=== PATIENT | male | born 1970 | race Caucasian/White ===

== ENCOUNTER 2017-02-09 14:40 | Emergency (ER) | payer OTHER, BC ==
[2017-02-09 14:52] VITALS: BP 140/95; PULSE 64; TEMP 97.8; BMI 25.1
--- NOTE | 2017-02-09 14:52 | PDOC ---
Rapid Medical Evaluation Chief Complaint: Injury Time Seen by Provider: 02/09/17 14:45 Medical Evaluation: Allergies Allergy/AdvReac Type Severity Reaction Status Date / Time No Known Allergies Allergy Verified 02/09/17 14:45 Vital Signs Temp Pulse Resp BP Pulse Ox 97.8 F 64 18 140/95 98 02/09/17 14:42 02/09/17 14:42 02/09/17 14:42 02/09/17 14:42 02/09/17 14:42 02/09/17 14:46 o I have performed a brief in-person evaluation of this patient. o The patient presents with a chief complaint of: Twisting right elbow o Pertinent physical exam findings: Right lateral elbow pain o I have ordered the following: Xray right elbow o The patient will proceed to the ED for further evaluation.
--- NOTE | 2017-02-09 15:33 | PDOC ---
History of Present Illness - General Chief Complaint: Injury Stated Complaint: JOB INJURY Time Seen by Provider: 02/09/17 14:45 History Source: Patient - History of Present Illness Occurred: reports: just prior to arrival Upper Extremity Pain Location: right: elbow Method of Injury: reports: twisted Past History - Past Medical History Allergies/Adverse Reactions: Allergies Allergy/AdvReac Type Severity Reaction Status Date / Time No Known Allergies Allergy Verified 02/09/17 14:45 Home Medications: Ambulatory Orders NK [No Known Home Medication] 10/10/15 Suicide Attempt (Hx): No Other medical history: PATIENT DENIES MEDICAL HISTORY - Psycho/Social/Smoking Cessation Hx Anxiety: No Suicidal Ideation: No Smoking Status: No Smoking History: Never smoked Number of Cigarettes Smoked Daily: 0 Hx Alcohol Use: No Drug/Substance Use Hx: No Substance Use Type: None Review of Systems - Review of Systems Musculoskeletal: Yes: Joint Pain. No: Joint Swelling Neurological: No: Numbness, Tingling *Physical Exam - Vital Signs Last Vital Signs Temp Pulse Resp BP Pulse Ox 97.8 F 64 18 140/95 98 02/09/17 14:42 02/09/17 14:42 02/09/17 14:42 02/09/17 14:42 02/09/17 14:42 - Physical Exam General Appearance: Yes: Appropriately Dressed. No: Apparent Distress HEENT: positive: Normal Voice Neck: positive: Supple Respiratory/Chest: negative: Respiratory Distress Extremity: positive: Normal Inspection, Normal Range of Motion. 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 Denies fall. Patient well- appearing and stable with no swelling, deformity or significant tenderness to right elbow on exam. Most likely sprain. X-ray ordered from triage and neg for fx. Patient discharge patient declines pain meds in ED. Discharged with [id number] pain meds as needed 02/09/17 15:34 *DC/Admit/Observation/Transfer Diagnosis at time of Disposition: Elbow sprain Qualifiers: Encounter type: initial encounter Laterality: right Qualified Code(s): S53.401A - Unspecified sprain of right elbow, initial encounter - Discharge Dispostion Disposition: HOME Condition at time of disposition: Good - Patient Instructions Printed Discharge Instructions: DI for Elbow Sprain Additional Instructions: Take motrin as needed for pain
== END 2017-02-09 15:59 | disposition home or self-care (01) ==
LOC: JERFT 14:40
DX: S53.401A Unspecified sprain of right elbow, initial encounter (principal); Y35.891A Legal intervention involving other specified means, law enforcement official injured, initial encounter; Y93.89 Activity, other specified; Y92.9 Unspecified place or not applicable
CPT/HCPCS: 73070-TC-RT; 99281-25

== ENCOUNTER 2017-06-29 09:40 | Emergency (ER) | payer OTHER, BC ==
[2017-06-29 09:51] VITALS: BP 142/94; PULSE 66; TEMP 98.5; BMI 25.1
[2017-06-29] MEDS ORDERED: IBUPROFEN 600 MG TABLET (FP) PO ONE ×2 (10:08→10:09)
--- NOTE | 2017-06-29 10:10 | PDOC ---
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 Patient reports the pain currently as a 6 out of 10 with no radiation of pain down the legs no saddle anesthesia or weakness of legs or foot. Patient is ambulating without difficulty. Patient denies any other injuries. Occurred: reports: just prior to arrival Severity: reports: moderate Pain Location: reports: back (mid lower back ) Method of Injury: Yes: other (struggling with suspect at work ) Modifying Factors: improves with: None Loss of Consciousness: no loss of consciousness Associated Symptoms (Fall): denies symptoms Past History - Past Medical History Allergies/Adverse Reactions: Allergies Allergy/AdvReac Type Severity Reaction Status Date / Time No Known Allergies Allergy Verified 06/29/17 09:47 Home Medications: Ambulatory Orders NK [No Known Home Medication] 10/10/15 COPD: No - Suicide/Smoking/Psychosocial Hx Smoking Status: No Smoking History: Never smoked Number of Cigarettes Smoked Daily: 0 Hx Alcohol Use: No Drug/Substance Use Hx: No Substance Use Type: None Trauma Specific PMHX - Complaint Specific PMHX Arthritis: No Back Injury: No Neck Injury: No Hx Sacro Iliac Joint Dysfunction: No Review of Systems - Review of Systems Able to Perform ROS?: Yes Constitutional: No: Symptoms Reported HEENTM: No: Symptoms Reported Respiratory: No: Symptoms reported Cardiac (ROS): No: Symptoms Reported ABD/GI: No: Symptoms Reported : No: Symptoms Reported Musculoskeletal: Yes: Back Pain (LOWER MID ) Integumentary: No: Symptoms Reported Neurological: No: Symptoms reported *Physical Exam - Vital Signs Last Vital Signs Temp Pulse Resp BP Pulse Ox 98.5 F 66 18 142/94 97 06/29/17 09:48 06/29/17 09:48 06/29/17 09:48 06/29/17 09:48 06/29/17 09:48 - Physical Exam General Appearance: Yes: Appropriately Dressed Neck: negative: Tender, Rigidity, Tender lateral, Tender midline Respiratory/Chest: positive: Lungs Clear, Normal Breath Sounds. negative: Chest Tender, Respiratory Distress Cardiovascular: positive: Regular Rhythm, Regular Rate, S1, S2 Musculoskeletal: positive: Normal Inspection, Decreased Range of Motion ( MINIMAL WITH ANTERIOR FLEXION AT WAIST ), Other (TENDERNESS OF PARASPINAL LUMBAR MUSCLE TENDERNESS B/L ). negative: CVA Tenderness, CVA Tenderness (R), CVA Tenderness (L), Muscle Spasm, Vertebral Tenderness Extremity: positive: Normal Capillary Refill, Normal Inspection, Normal Range of Motion Integumentary: positive: Normal Color Neurologic: positive: Alert, Normal Response, Motor Strength 5/5 (LEGS ), Respond to painful stimul (LEGS B/L ), Responsive, Other (NEGATIVE SLR B/L ). 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 Patient reports the pain currently as a 6 out of 10 with no radiation of pain down the legs no saddle anesthesia or weakness of legs or foot. Patient is ambulating without difficulty. Patient denies any other injuries. Lower back pain PLAN: IBUPROFEN 600 MG PO NOW FOLLOW UP WITH ORTHO IF PAIN PERSISTS *DC/Admit/Observation/Transfer Diagnosis at time of Disposition: Low back strain Qualifiers: Encounter type: initial encounter Qualified Code(s): S39.012A - Strain of muscle, fascia and tendon of lower back, initial encounter - Discharge Dispostion Disposition: HOME Condition at time of disposition: Stable - Referrals Referrals: Gera Elliott [Primary Care Provider] - Jaylan Sanabria MD [Staff Physician] - - Patient Instructions Additional Instructions: Follow-up with orthopedist if pain continues within the next couple of days Take ibuprofen, or Aleve, or Advil as needed as directed by air operations manager for pain Emergency room if any weakness of legs or any pain radiating down the legs or numbness of legs or private area or any loss of control of bowel or bladder You may apply ice to your lower back every hour for 15 minutes while awake today and tomorrow he may apply heating pad or warm pack Patient voiced understanding of discharge instructions and all questions were answered
== END 2017-06-29 10:14 | disposition home or self-care (01) ==
LOC: JERFT 09:40
DX: S39.012A Strain of muscle, fascia and tendon of lower back, initial encounter (principal); Y35.811A Legal intervention involving manhandling, law enforcement official injured, initial encounter; Y93.89 Activity, other specified; Y92.89 Other specified places as the place of occurrence of the external cause; Y99.0 Civilian activity done for income or pay
CPT/HCPCS: 99281-25

== ENCOUNTER 2017-12-21 12:36 | Emergency (ER) | payer BC, OTHER ==
[2017-12-21 12:44] VITALS: BP 137/88; PULSE 79; TEMP 97; BMI 24.3
[2017-12-21] MEDS ORDERED: BACITRACIN 15 GM TUBE TOPICAL OINTMENT ONE (13:19)
--- NOTE | 2017-12-21 13:44 | PDOC ---
History of Present Illness - General Chief Complaint: Injury Stated Complaint: LT KNEE INJURY Time Seen by Provider: 12/21/17 12:48 History Source: Patient - History of Present Illness Occurred: reports: other Severity: Yes: mild Lower Extremity Pain Location: left: knee Method of Injury: Yes: fell Past History - Past Medical History Allergies/Adverse Reactions: Allergies Allergy/AdvReac Type Severity Reaction Status Date / Time No Known Allergies Allergy Verified 12/21/17 12:39 Home Medications: Ambulatory Orders NK [No Known Home Medication] 10/10/15 COPD: No HTN: Yes (borderline HTN) - Immunization History Immunization Up to Date: Yes - Suicide/Smoking/Psychosocial Hx Smoking Status: No Smoking History: Never smoked Have you smoked in the past 12 months: No Number of Cigarettes Smoked Daily: 0 Information on smoking cessation initiated: No Hx Alcohol Use: No Drug/Substance Use Hx: No Substance Use Type: None Review of Systems - Review of Systems Musculoskeletal: Yes: Joint Pain. No: Joint Swelling *Physical Exam - Vital Signs Last Vital Signs Temp Pulse Resp BP Pulse Ox 97 F L 79 17 137/88 98 12/21/17 12:41 12/21/17 12:41 12/21/17 12:41 12/21/17 12:41 12/21/17 12:41 - Physical Exam General Appearance: Yes: Appropriately Dressed. No: Apparent Distress HEENT: positive: Normal Voice Neck: positive: Supple Respiratory/Chest: negative: Respiratory Distress Extremity: positive: Other (extensive abrasiosn to anterior R leg, no swellign to L knee joint, FROMI) Integumentary: positive: Dry, Warm Neurologic: positive: Fully Oriented, Alert, Normal Mood/Affect Medical Decision Making - Medical Decision Making 12/21/17 13:20 47 yo M, no sig hx, [employer], p/w L knee pain s/p injury during soccer ball last night. States he slid into another player and got LLE caught under player. States pain located to posterior L knee and worse w/ extension. Not taking anything for pain. Able to bear weight. Pt well manuel and stable w/ abrasions to anterior R leg, no joint swelling/deformity/laxity. M/l sprain. Dc w/ supportive tx and ortho referral as needed *DC/Admit/Observation/Transfer Diagnosis at time of Disposition: Knee injury Qualifiers: Encounter type: initial encounter Laterality: left Qualified Code(s): S89.92XA - Unspecified injury of left lower leg, initial encounter - Discharge Dispostion Disposition: HOME Condition at time of disposition: Good - Referrals Referrals: Gera Elliott [Primary Care Provider] - - Patient Instructions Printed Discharge Instructions: DI for Knee Sprain Additional Instructions: You likely sprained your knee but will need to follow-up with orthopedic if after 2 weeks if you are still experiencing significant pain. In the meantime, take Motrin or Tylenol for pain and rest - Post Discharge Activity
== END 2017-12-21 13:23 | disposition home or self-care (01) ==
LOC: JERFT 12:36
DX: S89.82XA Other specified injuries of left lower leg, initial encounter (principal); W03.XXXA Other fall on same level due to collision with another person, initial encounter; Y93.66 Activity, soccer; Y92.322 Soccer field as the place of occurrence of the external cause; Y99.8 Other external cause status
CPT/HCPCS: 99281-25

== ENCOUNTER 2018-03-24 11:33 | Emergency (ER) | payer OTHER, BC ==
[2018-03-24 11:43] VITALS: BP 135/77; PULSE 69; TEMP 99; BMI 25.1
--- NOTE | 2018-03-24 12:03 | PDOC ---
History of Present Illness - General Chief Complaint: Muscle Cramping Stated Complaint: QUAD INJURY ([employer]) Time Seen by Provider: 03/24/18 11:45 History Source: Patient Exam Limitations: No Limitations - History of Present Illness Initial Comments: CHIEF COMPLAINT: 47 y/o afebrile male, YPO, c/o left thigh pain today. 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 He denies fall. He is able to walk and states the area feels "sore". Vital signs on arrival are within normal limits. REVIEW OF SYSTEMS: GENERAL/CONSTITUTIONAL: No fever/chills. No weakness. No weight change. GENITOURINARY: No dysuria, frequency, or change in urination. MUSCULOSKELETAL: +left thigh pain. No neck or back pain. SKIN: No rash or easy bruising. NEUROLOGIC: No headache, vertigo, loss of consciousness, or loss of sensation. PHYSICAL EXAM: VITAL_SIGNS: within normal limits GENERAL_APPEARANCE: alert, cooperative, no obvious discomfort. Patient ambulatory with normal gait MENTAL_STATUS: speech clear, oriented X 3, responds appropriately to questions. NEURO: motor intact and sensory intact in injured extremity. EXTREMITIES: Equal quad and hamstring strength b/l LEs. No erythema, warmth, edema or bulging to left quad. Minimal TTP of left quad. SKIN: warm, dry, good color. Past History - Past Medical History Allergies/Adverse Reactions: Allergies Allergy/AdvReac Type Severity Reaction Status Date / Time No Known Allergies Allergy Verified 12/21/17 12:39 Home Medications: Ambulatory Orders NK [No Known Home Medication] 10/10/15 COPD: No DVT: No HTN: Yes (borderline HTN) - Immunization History Immunization Up to Date: Yes - Suicide/Smoking/Psychosocial Hx Smoking Status: No Smoking History: Never smoked Have you smoked in the past 12 months: No Number of Cigarettes Smoked Daily: 0 Hx Alcohol Use: No Drug/Substance Use Hx: No Substance Use Type: None *Physical Exam - Vital Signs Last Vital Signs Temp Pulse Resp BP Pulse Ox 99 F 69 16 135/77 99 03/24/18 11:41 03/24/18 11:41 03/24/18 11:41 03/24/18 11:41 03/24/18 11:41 Medical Decision Making - Medical Decision Making A/P: 47 y/o male with left quad strain. Patient refuses motrin. Suggested ice and NSAIDs at home. INstructed him to f/u with his ortho if no improvement in 1 week and return to the ER with any worsening or concerning symptoms. The patient verbalizes understanding of all instructions, has no further questions and is awaiting discharge. *DC/Admit/Observation/Transfer Diagnosis at time of Disposition: Muscle strain of left thigh - Discharge Dispostion Disposition: HOME Condition at time of disposition: Good - Referrals - Patient Instructions Printed Discharge Instructions: DI for Muscle Strain, How To Perform RICE (Rest , Ice, Compress, Elevate) Additional Instructions: Discharge Instructions: -Take Motrin for pain if needed -Apply ice to affected area -Return to the ER with any worsening or concerning symptoms - Post Discharge Activity Forms/Work/School Notes: Back to Work
== END 2018-03-24 12:22 | disposition home or self-care (01) ==
LOC: JERFT 11:33
DX: S76.112A Strain of left quadriceps muscle, fascia and tendon, initial encounter (principal); Y35.811A Legal intervention involving manhandling, law enforcement official injured, initial encounter; Y93.89 Activity, other specified; Y92.89 Other specified places as the place of occurrence of the external cause; Y99.0 Civilian activity done for income or pay
CPT/HCPCS: 99281-25

== ENCOUNTER 2018-11-22 13:40 | Emergency (ER) | payer OTHER ==
[2018-11-22 14:02] VITALS: BP 110/66; PULSE 62; TEMP 98; BMI 25.1
--- NOTE | 2018-11-22 14:59 | PDOC ---
History of Present Illness - General Chief Complaint: Injury Stated Complaint: LF HAND FINGER INJURY Time Seen by Provider: 11/22/18 14:50 - History of Present Illness Initial Comments: 11/22/18 14:59 48-year-old male without comorbidities presents for evaluation of left fourth finger pain. 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 Past History - Past Medical History Allergies/Adverse Reactions: Allergies Allergy/AdvReac Type Severity Reaction Status Date / Time No Known Allergies Allergy Verified 11/22/18 13:58 Home Medications: Ambulatory Orders NK [No Known Home Medication] 10/10/15 COPD: No DVT: No HTN: Yes (borderline HTN) - Immunization History Immunization Up to Date: Yes - Suicide/Smoking/Psychosocial Hx Smoking Status: No Smoking History: Never smoked Have you smoked in the past 12 months: No Number of Cigarettes Smoked Daily: 0 Information on smoking cessation initiated: No Hx Alcohol Use: No Drug/Substance Use Hx: No Substance Use Type: None Review of Systems - Review of Systems Musculoskeletal: Yes: Joint Pain *Physical Exam - Vital Signs Last Vital Signs Temp Pulse Resp BP Pulse Ox 98.0 F 62 20 110/66 97 11/22/18 13:58 11/22/18 13:58 11/22/18 13:58 11/22/18 13:58 11/22/18 13:58 - Physical Exam Comments: 11/22/18 14:59 Left fourth finger skin color and temperature are normal range of motion is full with pain at terminal flexion. FDS and FDP work independently. There is tenderness about the PIPJ. No instability or swelling. No gross sensorimotor deficits. Is neurovascularly intact. ED Treatment Course - RADIOLOGY Radiology Studies Ordered: Category Date Time Status FINGER(S) LEFT [RAD] Stat Radiology 11/22/18 14:54 Ordered Medical Decision Making - Medical Decision Making 11/22/18 15:03 pt refused x-ray, differential includes suspect fx vs sprain, advised risk of mal, non union, deformity and disablity will administer splint and have pt follow up with hand surgery. 11/22/18 15:08 *DC/Admit/Observation/Transfer Diagnosis at time of Disposition: Sprain of left middle finger - Discharge Dispostion Disposition: HOME Condition at time of disposition: Stable Decision to Admit order: No - Referrals Referrals: Mario Almaraz MD [Staff Physician] - - Patient Instructions Printed Discharge Instructions: DI for Finger Sprain Additional Instructions: He may keep the finger splinted and remove the splint for hygiene gentle range of motion as much as you can tolerate to the point pain. Return to the emergency room should symptoms worsen or do not resolve and follow-up with hand surgery in 1-2 days for further evaluation and treatment options. - Post Discharge Activity
== END 2018-11-22 15:17 | disposition home or self-care (01) ==
LOC: JERFT 13:40
PROC: 2W3KX1Z Immobilization of Left Finger using Splint (ICD-10-PCS; principal; 2018-11-22)
DX: S63.635A Sprain of interphalangeal joint of left ring finger, initial encounter (principal); S63.633A Sprain of interphalangeal joint of left middle finger, initial encounter; Y35.811A Legal intervention involving manhandling, law enforcement official injured, initial encounter; Y93.89 Activity, other specified; Y92.89 Other specified places as the place of occurrence of the external cause; Y99.0 Civilian activity done for income or pay
CPT/HCPCS: 99281-25

== ENCOUNTER 2019-01-19 13:57 | Emergency (ER) | payer OTHER ==
--- NOTE | 2019-01-19 14:09 | PDOC ---
Rapid Medical Evaluation Time Seen by Provider: 01/19/19 14:08 Medical Evaluation: Allergies Allergy/AdvReac Type Severity Reaction Status Date / Time No Known Allergies Allergy Verified 11/22/18 13:58 01/19/19 14:08 I have performed a brief in-person evaluation of this patient. The patient presents with a chief complaint of: L thumb "got banged up" on job Pertinent physical exam findings: mild abrasion to dorsal aspect of L thumb, full ROM to all digits/wrist I have ordered the following: finger x-ray The patient will proceed to the ED for further evaluation.
[2019-01-19 14:10] VITALS: BP 115/75; PULSE 68; TEMP 98; BMI 25.8
--- NOTE | 2019-01-19 14:36 | PDOC ---
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 Reports full ROM to all fingers to left hand and wrist. No recent travel or sick contacts. PAST MEDICAL HISTORY: Denies past medical history FAMILY HISTORY: Denies SOCIAL HISTORY: Denies tobacco, alcohol, illicit drug use. SURGICAL HISTORY: Denies ALLERGIES: No known drug allergies REVIEW OF SYSTEMS General/Constitutional: Denies fever or chills. Denies weakness, weight change. HEENT: Denies change in vision. Denies ear pain or discharge. Denies sore throat. Cardiovascular: Denies chest pain or shortness of breath. Respiratory: Denies cough, wheezing, or hemoptysis. Gastrointestinal: Denies nausea, vomiting, diarrhea or constipation. Denies rectal bleeding. Genitourinary: Denies dysuria, frequency, or change in urination. Musculoskeletal: pain to left thumb Skin: "my finger got banged up a little." PHYSICAL EXAM General Appearance: Well-appearing, appropriately dressed. No apparent distress , no intoxication. HEENT: EOMI, PERRLA, normal ENT inspection, normal voice, TMs normal, pharynx normal. No conjunctival pallor. No photophobia, scleral icterus. Neck: Supple. Trachea midline. No tenderness, rigidity, carotid bruit, stridor, lymphadenopathy, or thyromegaly. Respiratory/Chest: Lungs CTAB. No shortness of breath, chest tenderness, respiratory distress, accessory muscle use. No crackles, rales, rhonchi, stridor , wheezing, dullness Cardiovascular: RRR. S1, S2. No JVD, murmur, bradycardia, tachycardia. Vascular Pulses: Dorsalis-Pedis (R): 2+, Dorsalis-Pedis (L): 2+ Gastrointestinal/Abdominal: Normal bowel sounds. Abdomen soft, non-distended. No tenderness or rebound tenderness. No organomegaly, pulsatile mass, guarding, hernia, hepatomegaly, splenomegaly. Lymphatic: No adenopathy, tenderness. Musculoskeletal/Extremities: Normal inspection. FROM of all extremities, normal capillary refill. Pelvis Stable. No CVA tenderness. No tenderness to extremities , pedal edema, swelling, erythema or deformity. Integumentary: mild abrasion to dorsal aspect of left thumb. Neurologic: php web developer II-XII intact. Fully oriented, alert. Appropriate mood/affect. Motor strength 5/5. No appreciable EOM palsy, facial droop or sensory deficit. Past History - Past Medical History Allergies/Adverse Reactions: Allergies Allergy/AdvReac Type Severity Reaction Status Date / Time No Known Allergies Allergy Verified 01/19/19 15:04 Home Medications: Ambulatory Orders NK [No Known Home Medication] 10/10/15 COPD: No DVT: No HTN: Yes (borderline HTN) - Immunization History Immunization Up to Date: Yes - Suicide/Smoking/Psychosocial Hx Smoking Status: No Smoking History: Unknown if ever smoked Have you smoked in the past 12 months: No Number of Cigarettes Smoked Daily: 0 Information on smoking cessation initiated: No Hx Alcohol Use: No Drug/Substance Use Hx: No Substance Use Type: None *Physical Exam - Vital Signs Last Vital Signs Temp Pulse Resp BP Pulse Ox 98.0 F 68 16 115/75 100 01/19/19 14:08 01/19/19 14:08 01/19/19 14:08 01/19/19 14:08 01/19/19 14:08 ED Treatment Course - RADIOLOGY Radiology Studies Ordered: Category Date Time Status FINGER(S) LEFT [RAD] Stat Radiology 01/19/19 14:09 Ordered Medical Decision Making - Medical Decision Making 01/19/19 14:37 48 yo M with no PMH, [employer], presents to ED with left thumb that he reports "got banged up" 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 -finger x-ray 01/19/19 15:24 Pt refuses x-ray, states he does not feel it's necessary and is ready to be d/c. *DC/Admit/Observation/Transfer Diagnosis at time of Disposition: Thumb pain Qualifiers: Laterality: left Qualified Code(s): M79.645 - Pain in left finger(s) - Discharge Dispostion Disposition: HOME Condition at time of disposition: Good Decision to Admit order: No - Referrals Referrals: Gera Elliott [Primary Care Provider] - - Patient Instructions Printed Discharge Instructions: DI for Finger Sprain - Post Discharge Activity
== END 2019-01-19 15:40 | disposition home or self-care (01) ==
LOC: JERFT 13:57
DX: S60.312A Abrasion of left thumb, initial encounter (principal); Y35.811A Legal intervention involving manhandling, law enforcement official injured, initial encounter; Y93.89 Activity, other specified; Y92.89 Other specified places as the place of occurrence of the external cause; Y99.0 Civilian activity done for income or pay
CPT/HCPCS: 99281-25

== ENCOUNTER 2020-04-04 12:32 | Emergency (ER) | payer BC, OTHER ==
[2020-04-04 13:00] VITALS: BP 113/73; PULSE 74; TEMP 98.2; BMI 25.1
[2020-04-04] MEDS ORDERED: DIPHTH,PERTUSS(ACELL),TET 0.5 ML DISP.SYRIN IM ONE ×2 (13:10→13:15)
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
== END 2020-04-04 14:28 | disposition home or self-care (01) ==
LOC: FER 12:32
PROC: 3E0234Z Introduction of Serum, Toxoid and Vaccine into Muscle, Percutaneous Approach (ICD-10-PCS; principal; 2020-04-04)
DX: S62.001A Unspecified fracture of navicular [scaphoid] bone of right wrist, initial encounter for closed fracture (principal)
CPT/HCPCS: 73110-TC-RT-FY; 73130-TC-RT-FY; 90715; 99284-25

== ENCOUNTER 2020-09-11 15:22 | Emergency (ER) | payer OTHER ==
[2020-09-11 15:43] VITALS: BP 111/74; PULSE 67; TEMP 98.9; BMI 25.1
== END 2020-09-11 15:57 | disposition home or self-care (01) ==
LOC: FER 15:22
DX: S39.012A Strain of muscle, fascia and tendon of lower back, initial encounter (principal)
CPT/HCPCS: 99283-25

== ENCOUNTER 2025-01-07 13:15 | Emergency (ER) | payer BC, OTHER ==
[2025-01-07 13:25] VITALS: BP 140/87; PULSE 72; RESP 18; TEMP 97.5; BMI 25.1
== END 2025-01-07 15:11 | disposition home or self-care (01) ==
LOC: FER 13:15
DX: S99.922A Unspecified injury of left foot, initial encounter (principal); W20.8XXA Other cause of strike by thrown, projected or falling object, initial encounter
CPT/HCPCS: 73630-TC-LT; 99283-25